=== PATIENT | female | born 1980 | race Caucasian/White ===

== ENCOUNTER 2016-12-05 11:19 | Emergency (ER) | payer MEDICAID ==
[~2016-12-05] VITALS: Ht 160 cm; Wt 74.0 kg
[2016-12-05 11:35] VITALS: Ht 160 cm; Wt 74.0 kg
[2016-12-05] MEDS ORDERED: ONDANSETRON 4 MG INJ IV STA ×2 (12:00→13:38)
[2016-12-05] MEDS ORDERED: morphine 4 MG/ML VIAL IV STA (12:00)
[2016-12-05 12:24] LABS: ADD SCAN DIFF NO
[2016-12-05 12:31] LABS: BASOPHIL # 0.1 10^3/ul (0.0-0.1); BASOPHILS % 0.6 % (0.0-2.0); EOSINOPHILS % 0.3 % (0.0-7.0); HEMATOCRIT 43.1 % (37.0-47.0); HEMOGLOBIN 14.2 g/dl (12.0-16.0); LYMPHOCYTES # 1.8 10^3/ul (0.8-2.9); LYMPHOCYTES % 14.5 % (15.0-51.0); MEAN CORPUSCULAR HEMOGLOBIN 27.5 pg (29.0-33.0); MEAN CORPUSCULAR HGB CONC 32.9 g/dl (32.0-37.0); MEAN CORPUSCULAR VOLUME 83.5 fl (82.0-101.0); MONOCYTE # 0.6 10^3/ul (0.3-0.9); MONOCYTES % 4.9 % (0.0-11.0); NEUTROPHIL # 9.9 10^3/ul (1.6-7.5); NEUTROPHILS % 79.3 % (39.0-77.0); PLATELET COUNT 385 10^3/UL (140-415); RED BLOOD COUNT 5.16 10^6/ul (4.20-5.40); RED CELL DISTRIBUTION WIDTH 13.2 % (11.5-14.5); WHITE BLOOD COUNT 12.5 10^3/ul (4.8-10.8)
[2016-12-05 12:32] LABS: ADD UMIC NO; UR ASCORBIC ACID 40 mg/dL (NEGATIVE); UR BILIRUBIN (Dip) NEGATIVE (NEGATIVE); UR BLOOD (Dip) NEGATIVE (NEGATIVE); UR CLARITY CLEAR (CLEAR); UR COLOR YELLOW (YELLOW); UR GLUCOSE (Dip) NEGATIVE (NEGATIVE); UR KETONES (Dip) NEGATIVE (NEGATIVE); UR LEUKOCYTE ESTERASE (Dip) NEGATIVE Leu/ul (NEGATIVE); UR NITRITE (Dip) NEGATIVE (NEGATIVE); UR SPECIFIC GRAVITY (Dip) 1.023 (1.003-1.030); UR TOTAL PROTEIN (Dip) NEGATIVE (NEGATIVE); UR UROBILINOGEN (Dip) NEGATIVE (NEGATIVE)
[2016-12-05 12:43] LABS: ALBUMIN 4.7 g/dl (3.3-4.9); ALBUMIN/GLOBULIN RATIO 1.67; BILIRUBIN,INDIRECT 0.8 mg/dl (0-1.1); BILIRUBIN,TOTAL 0.8 mg/dl (0.2-1.3); CALCIUM 8.7 mg/dl (8.4-10.2); CREATININE 0.64 mg/dl (0.44-1.00); POTASSIUM 4.1 mmol/L (3.5-5.1); TOTAL PROTEIN 7.5 g/dl (6.1-8.1)
--- NOTE | 2016-12-05 12:53 | RADRPT ---
PROCEDURE: US Abdomen. CLINICAL INDICATION: Right upper quadrant abdominal pain. TECHNIQUE: Multiple real-time images were acquired of the patient's abdomen and retroperitoneum ut ilizing a high resolution transducer. COMPARISON: None FINDINGS: There are multiple gallstones in the gallbladder. The liver is echogenic and enlarged measuring 19. 9 cm in length. The hepatic and portal veins are patent. Gallbladder wall measures 1 mm. The comm on bile duct measures 4.2 mm. The right kidney measures 11.34 cm. IMPRESSION: 1. Hepatomegaly with fatty infiltration of the liver. 2. Cholelithiasis. RPTAT:AAJJ Physician Gibran Date Time Electronically viewed and signed by Glenroy Ervin Physician on 12/05/2016 12:53 /
--- NOTE | 2016-12-05 13:03 | ERD ---
ER Documentation Chief Complaint Date/Time DATE: 12/05/16 TIME: 12:56 Chief Complaint ap started this morning HPI Is a 36-year-old female who presents to the emergency department today today complaining of sudden onset abdominal pain that started this morning at 3 in the morning. She states that yesterday she had one alcoholic drink but did not notice any pain until this morning. States that she has nausea and that the pain goes around her back. States she took 2 Tylenol at 4 PM it is not helping with the pain. Denies any fevers or chills. ROS All systems reviewed and are negative except as per history of present illness. Medications Home Meds Active Scripts Ondansetron Hcl* (Zofran*) 4 Mg Tablet, 4 MG PO Q6H for NAUSEA AND/OR VOMITING, #30 TAB Prov:DEISI RODARTE PA-C 12/05/16 Ibuprofen* (Motrin*) 600 Mg Tab, 600 MG PO Q6, #30 TAB Prov:DEISI RODARTE PA-C 12/05/16 Hydrocodone/Acetaminophen (Thorndike 5-325 Tablet) 1 Each Tablet, 1 TAB PO Q6H Y for PAIN, #15 TAB Prov:DEISI RODARTE PA-C 12/05/16 Allergies Allergies: Coded Allergies: No Known Allergy (Unverified , 12/05/16) PMhx/Soc Medical and Surgical Hx: pt denies Medical Hx, pt denies Surgical Hx History of Surgery: Yes (tubal ligation) Anesthesia Reaction: No Hx Respiratory Disorders: No Hx Cardiac Disorders: No Hx Psychiatric Problems: No Hx Miscellaneous Medical Probl: No Hx Alcohol Use: No Hx Substance Use: No Hx Tobacco Use: No Smoking Status: Never smoker Physical Exam Vitals Vital Signs Date Time Temp Pulse Resp B/P Pulse Ox O2 Delivery O2 Flow Rate FiO2 12/05/16 11:35 98.2 55 18 130/65 100 Physical Exam Const: Mild distress Head: Atraumatic Eyes: Normal Conjunctiva ENT: Normal External Ears, Nose and Mouth. Neck: Full range of motion..~ No meningismus. Resp: Clear to auscultation bilaterally Cardio: Regular rate and rhythm, no murmurs Abd: Soft, epigastric right upper quadrant tenderness non distended. Normal bowel sounds no right lower quadrant pain. No tenderness McBurney's. No left lower quadrant pain. Skin: No petechiae or rashes Back: No midline or flank tenderness. No CVA tenderness Ext: No cyanosis, or edema Neur: Awake and alert Psych: Normal Mood and Affect Result Diagram: 12/05/16 1215 12/05/16 1215 Results 24 hrs Laboratory Tests Test 12/05/16 12:15 White Blood Count 12.510^3/ul Red Blood Count 5.1610^6/ul Hemoglobin 14.2g/dl Hematocrit 43.1% Mean Corpuscular Volume 83.5fl Mean Corpuscular Hemoglobin 27.5pg Mean Corpuscular Hemoglobin Concent 32.9g/dl Red Cell Distribution Width 13.2% Platelet Count 26555^3/UL Mean Platelet Volume 10.0fl Neutrophils % 79.3% Lymphocytes % 14.5% Monocytes % 4.9% Eosinophils % 0.3% Basophils % 0.6% Nucleated Red Blood Cells % 0.0/100WBC Neutrophils # 9.910^3/ul Lymphocytes # 1.810^3/ul Monocytes # 0.610^3/ul Eosinophils # 0.010^3/ul Basophils # 0.110^3/ul Nucleated Red Blood Cells # 0.010^3/ul Urine Color YELLOW Urine Clarity CLEAR Urine pH 7.0 Urine Specific Rulo 1.023 Urine Ketones NEGATIVEmg/dL Urine Nitrite NEGATIVEmg/dL Urine Bilirubin NEGATIVEmg/dL Urine Urobilinogen NEGATIVEmg/dL Urine Leukocyte Esterase NEGATIVELeu/ul Urine Hemoglobin NEGATIVEmg/dL Urine Glucose NEGATIVEmg/dL Urine Total Protein NEGATIVEmg/dl Sodium Level 138mmol/L Potassium Level 4.1mmol/L Chloride Level 102mmol/L Carbon Dioxide Level 26mmol/L Anion Gap 14 Blood Urea Nitrogen 11mg/dl Creatinine 0.64mg/dl Glucose Level 139mg/dl Calcium Level 8.7mg/dl Total Bilirubin 0.8mg/dl Direct Bilirubin 0.00mg/dl Indirect Bilirubin 0.8mg/dl Aspartate Amino Transf (AST/SGOT) 126IU/L Alanine Aminotransferase (ALT/SGPT) 118IU/L Alkaline Phosphatase 84IU/L Total Protein 7.5g/dl Albumin 4.7g/dl Globulin 2.80g/dl Albumin/Globulin Ratio 1.67 Lipase 82U/L Current Medications Medications (Trade) Dose Ordered Sig/Linsey Route PRN Reason Start Time Stop Time Status Last Admin Dose Admin Morphine Sulfate (morphine) 4 mg ONCE STAT IV 12/05/16 12:00 12/05/16 12:03 DC 12/05/16 12:17 Ondansetron HCl (Zofran Inj) 4 mg ONCE STAT IV 12/05/16 12:00 12/05/16 12:03 DC 12/05/16 12:17 Hydromorphone HCl (Dilaudid) 1 mg ONCE STAT IV 12/05/16 13:37 12/05/16 13:38 DC 12/05/16 13:48 Ondansetron HCl (Zofran Inj) 4 mg ONCE STAT IV 12/05/16 13:38 12/05/16 13:39 DC 12/05/16 13:48 DIAGNOSTIC IMAGING REPORT Patient: JAKE CARVER : 1980 Age: 36 Sex: F MR #: [id number] DOS: 12/05/16 1200 Ordering MD: DEISI RODARTE PA-C Location: [facility] Room/Bed: PROCEDURE: US Abdomen. CLINICAL INDICATION: Right upper quadrant abdominal pain. TECHNIQUE: Multiple real-time images were acquired of the patient's abdomen and retroperitoneum utilizing a high resolution transducer. COMPARISON: None FINDINGS: There are multiple gallstones in the gallbladder. The liver is echogenic and enlarged measuring 19.9 cm in length. The hepatic and portal veins are patent. Gallbladder wall measures 1 mm. The common bile duct measures 4.2 mm. The right kidney measures 11.34 cm. IMPRESSION: 1. Hepatomegaly with fatty infiltration of the liver. 2. Cholelithiasis. RPTAT:AAJJ Physician Gibran Date Time Electronically viewed and signed by Physician Gibran on 12/05/2016 12:53 JM/ CC: DEISI RODARTE PA-C Procedures/MDM This is a 36-year-old female who presents the emergency department today complaining of sudden onset abdominal pain. Patient had tenderness in her epigastric and right upper quadrant region and therefore did obtain laboratory work as well as imaging. Laboratory work shows a mildly elevated white blood cell count. She is not anemic. Platelets are within normal limits. Electrolytes are within normal limits. Glucose within normal limits. Liver enzymes are elevated. Bilirubin is within normal limits. Lipase is within normal limits. UA is negative for infection test is negative Ultrasound shows hepatomegaly with fatty infiltration of the liver. There are also gallstones. The gallbladder wall measures 1 mm. Common bile duct measures 4.2 mm. No evidence of pericholecystic fluid or gallbladder wall thickening. Patient symptoms at this time is consistent with gallstones and biliary colic. No evidence of cholecystitis at this time. Low suspicion for acute surgical abdomen. Patient was given morphine and Zofran here in the emergency department however pain persisted. She was then given Dilaudid and pain improved. Patient was resting comfortably. e will be given a prescription for Thorndike, Motrin, Zofran for home At this time the patient is stable for discharge and outpatient management. Patient should follow up with their PCP in the next 1-2 days. They may return to the emergency department sooner for any persistent or worsening of symptoms. Patient understood and agreed with the plan. Departure Diagnosis: Primary Impression: Gallstones Condition: DEISI Severino PA-C Dec 05, 2016 13:02
[2016-12-05] MEDS ORDERED: HYDROmorphONE 1 MG/ML SYG IV STA (13:37)
[2016-12-05] MEDS ORDERED: IBUP-1542 PO (15:00)
[2016-12-05] MEDS ORDERED: HYDR-906 PO (15:00)
[2016-12-05] MEDS ORDERED: ONDA4TAB8 PO (15:00)
[2016-12-05 15:37] VITALS: BP 124/73; PULSE 66; RESP 16; TEMP 98.3
== END 2016-12-05 15:40 | disposition home or self-care (01) ==
LOC: FTE 11:19
DX: K80.20 Calculus of gallbladder without cholecystitis without obstruction (principal)
CPT/HCPCS: 36415; 76705; 80053; 81003; 83690; 85025; 96374; 96375; 96376; J1170; J2270; J2405; Z7502

== ENCOUNTER 2017-10-05 00:05 | Emergency (ER) | END 2017-10-05 04:01 | disposition home or self-care (01) ==